=== PATIENT | male | born 1990 | race Caucasian/White ===

== ENCOUNTER 2020-04-09 03:55 | Emergency (ER) | payer OTHER, SELFPAY ==
[2020-04-09 03:58] VITALS: BP 158/98; PULSE 90; RESP 15; TEMP 36.8; O2SAT 98; BMI 29.6
--- NOTE | 2020-04-09 04:16 | ED_ITS ---
HPI - Eye Problem General Chief complaint: Eye Problems Stated complaint: hydrolic fluid in eye Time Seen by Provider: 04/09/20 04:00 Source: patient and EMS Mode of arrival: EMS Limitations: no limitations History of Present Illness HPI Narrative: 29M daily smoker with non-contributory medical history presents by EMS for evaluation of a work related chemical exposure just prior to arrival. He is in the [place] and was working on an aircraft, he had decompressed all the lines and went to do a final check and was briefly sprayed with hydraulic fluid. He was wearing eyeglasses but no other on her face protection. He states the exposure was for 2nd or less and he may have got a small amount in his mouth but certainly did not inhale any. He immediately ran to the eye wash station and irrigated for 15 minutes while EMS was activated. He states that his eyes and the skin on his face and head were burning but feel much better now. There is a rather lengthy transport time during which EMS irrigated with another 1.5 L of normal saline. On arrival patient does complain of some very mild irritation in his eyes with no change in his visual acuity, no chest pain no cough, difficulty swallowing, nausea, vomiting or diarrhea. He comes with the MSDS of the chemical in question, a general hydraulic fluid with product name Skydrol [id number]. chief complaint: eye pain, eye redness and eye injury Onset (ago): minute(s) Onset description: sudden Duration: improved Location: both eyes Eye Symptoms: burning and redness Place: work Mechanism: chemical exposure Severity: moderate If Pain, Quality: burning Context: recent URI Associated symptoms: none Related Data Patient tetanus UTD: Yes Review of Systems Constitutional Constitutional: Denies chills, Denies fatigue, Denies fever(s), Denies frequent falls, Denies lethargy and Denies weakness Eyes Eyes: Denies change in vision, Denies eye discharge, Reports irritation and Denies loss of vision ENT Ears, Nose, Mouth, and Throat: Denies change in voice, Denies dizziness, Denies neck pain, Denies sore throat and Denies throat swelling Cardiovascular Cardiovascular: Denies chest pain, Denies irregular heart rhythm, Denies lightheadedness, Denies palpitations, Denies dyspnea, Denies dyspnea on exertion and Denies orthopnea Respiratory Respiratory: Denies cough, Denies dyspnea, Denies dyspnea on exertion and Denies wheezing Gastrointestinal Gastrointestinal: Denies abdominal pain, Denies change in bowel habits, Denies diarrhea, Denies nausea and Denies vomiting Musculoskeletal Musculoskeletal: Denies neck pain and Denies numbness Integumentary/Breasts Skin/Breast: Denies pruritus, Denies erythema, Denies rash and Denies wounds Neurologic Neurologic: Denies behavioral changes, Denies confusion, Denies dizziness, Denies frequent falls, Denies loss of vision, Denies numbness and Denies weakness Psychiatric Psychiatric: Denies anxiety, Denies behavioral changes, Denies confusion, Denies depression, Denies homicidal ideation and Denies suicidal ideation Endocrine Endocrine: Denies fatigue, Denies flushing and Denies palpitations Hematologic/Lymphatic Hematologic/Lymphatic: Denies easy bruising Allergic/Immunologic Allergic/Immunologic: Denies urticaria, Denies throat swelling and Denies wheezing Patient History Social History Smoking Status: Current some day smoker Smoking Status: Current some day smoker tobacco type: vaping Exam Narrative Exam Narrative: GEN: AOx3 and in mild distress EYES: Pupils are equal, round, and reactive to light and accommodation. Extraoccular muscles are intact bilaterally. Mild redness. pH 7.0 in both eyes CHEST: Lungs are clear to auscultation bilaterally and free of wheezes, rales, or rhonchi. Heart rate is regular rhythm, there are no murmurs, clicks, rubs, or gallops. There is no chest wall tenderness. ABD: Abdomen is soft and nontender. There is no guarding or rebound. Bowel sounds are normal in all 4 quadrants. There is no mass or organomegaly. EXT: Full painless ROM of all extremities with no loss of sensation or strength. SKIN: Warm, pink, and dry. No erythema or rash Initial Vital Signs Initial Vital Signs: Vital Signs Temperature 98.2 F 04/09/20 03:58 Pulse Rate 90 04/09/20 03:58 Respiratory Rate 15 04/09/20 03:58 Blood Pressure 158/98 H 04/09/20 03:58 Pulse Oximetry 98 04/09/20 03:58 Course Course Course Narrative: Safety Data Sheet recommends: EYE CONTACT immediate flush with water for at least 15 minutes. SKIN CONTACT Flush for 15 minutes Vital Signs Vital signs: Vital Signs - 8 hr 04/09/20 03:58 04/09/20 04:40 Temperature 98.2 F Pulse Rate 90 89 Respiratory Rate 15 16 Blood Pressure 158/98 H 152/94 H Pulse Oximetry 98 98 Discharge Plan Departure Patient Disposition: Home Clinical Impression: Chemical exposure of eye Instructions: DI for Chemical Eye Burn Activity Restrictions/Additional Instructions: *You have been diagnosed with [chemical exposure to both eyes, with appropriate treatment administered pre-hospital] *What to do: *Follow up with your primary care provider in 2-3 days, call for an appointment. Let them know you were seen in the Emergency Department and that we ask that you be seen in follow up *Return to ER if you should have any new, worsening or concerning symptoms Referrals: [facility] [Outside] Stand Alone Forms: Work Release Note
[2020-04-09 04:40] VITALS: BP 152/94; PULSE 89; RESP 16; O2SAT 98
== END 2020-04-09 04:40 | disposition home or self-care (01) ==
PROVIDERS: Emergency Provider Emergency Medicine
DX: Z77.098 Contact with and (suspected) exposure to other hazardous, chiefly nonmedicinal, chemicals (principal)
CPT/HCPCS: 99281